=== PATIENT | male | born 1960 | race Two or more races ===

== ENCOUNTER 2022-09-27 12:48 | Emergency (ER) | payer BC ==
[~2022-09-27] VITALS: Ht 167.6 cm; Wt 79.4 kg
[2022-09-27 13:04] VITALS: BP 139/72
--- NOTE | 2022-09-27 13:04 | NUR ---
BIBS FOR LEFT HAND PAIN AND SWELLING WHILE PLAYING VOLLEYBALL. PAIN IS 5/10 ON PAIN SCALE. NO NOTABLE DEFORMITIES. MILAN HOWARD.
[2022-09-27] MEDS ORDERED: IBUP-1955 PO (14:59)
--- NOTE | 2022-09-27 15:01 | NUR ---
Patient discharged to home in stable condition. Written and verbal after care instructions given. Patient verbalizes understanding of instruction.
--- NOTE | 2022-09-27 15:03 | NUR ---
ORDER FOR CD OF IMAGES NOTED; CALLED RADIOLOGY
== END 2022-09-27 15:15 | disposition home or self-care (01) ==
LOC: ER 12:48
DX: S62.617A Displaced fracture of proximal phalanx of left little finger, initial encounter for closed fracture (principal); I10 Essential (primary) hypertension; E03.9 Hypothyroidism, unspecified; W51.XXXA Accidental striking against or bumped into by another person, initial encounter; Y93.68 Activity, volleyball (beach) (court); Y92.89 Other specified places as the place of occurrence of the external cause; Y99.8 Other external cause status
CPT/HCPCS: 73130-TC